=== PATIENT | female | born 1995 | race Caucasian/White ===

== ENCOUNTER 2018-01-15 15:34 | Inpatient (IN) | payer OTHER ==
[~2018-01-15] VITALS: Ht 165.1 cm; Wt 54.0 kg
--- NOTE | 2018-01-15 16:20 | NUR ---
recieved pt to ed bed 17, pt was bb sister for lower abdominal pain for nausea, vomiting. Pt is currently taking flagyl and acyclovir and he thinks these medications are causing the pain. NAD. vss rr even and unlabored. Will continue to monitor
[2018-01-15 16:30] LABS: HEMATOCRIT 46 % (39-51); HEMOGLOBIN 15.4 g/dL (13.5-17.5); LYMPHOCYTES # (AUTO) 0.4 /CMM (0.8-4.8); LYMPHOCYTES % (AUTO) 1.8 % (20.0-44.0); MEAN CORPUSCULAR HGB CONC 33 g/dl (31.0-36.0); MEAN CORPUSCULAR VOLUME 86 fL (80-96); MONOCYTES # (AUTO) 0.3 /CMM (0.1-1.30); MONOCYTES % (AUTO) 1.4 % (2.0-12.0); NEUTROPHILS # (AUTO) 21.1 /CMM (1.8-8.9); NEUTROPHILS % (AUTO) 96.8 % (43.0-81.0); PLATELET COUNT (AUTO) 230 /CMM (150-450); RED BLOOD CELL COUNT(AUTO) 5.34 MIL/uL (4.5-6.0); WHITE BLOOD COUNT (AUTO) 21.8 K/uL (4.3-11.0)
[2018-01-15] MEDS ORDERED: ONDANSETRON HCL/PF 4 MG/2 ML VIAL ONE ×2 (16:30→17:00)
[2018-01-15] MEDS ORDERED: ONDANSETRON HCL/PF 4 MG/2 ML VIAL IVP ONE (16:30)
[2018-01-15] MEDS ORDERED: IV NS 0.9% 1,000 ML BAG IV ONE (16:30)
[2018-01-15 16:34] LABS: CALCIUM, SERUM 9.1 mg/dL (8.5-10.1); CREATININE 1.1 mg/dL (0.6-1.3); POTASSIUM 3.6 mmol/L (3.5-5.1)
[2018-01-15 16:39] LABS: BILIRUBIN,DIRECT 0.1 mg/dL (0.0-0.2); BILIRUBIN,TOTAL 0.8 mg/dL (0.2-1.0); TOTAL PROTEIN, SERUM 7.6 g/dL (6.4-8.2)
--- NOTE | 2018-01-15 16:42 | NUR ---
Medicated as ordered.
[2018-01-15] MEDS ORDERED: ONDANSETRON HCL/PF - ER 4 MG/2 ML VIAL IV ONE (17:00)
[2018-01-15] MEDS ORDERED: HYDROMORPHONE INJ 2 MG/ML DISP.SYRIN ONE (17:00)
[2018-01-15] MEDS ORDERED: HYDROMORPHONE 1 MG/1 ML DISP.SYRIN IV ONE (17:00)
[2018-01-15 17:35] LABS: BAND % (MANUAL) 6 % (0.0-5.0); LYMPHOCYTES % (MANUAL) 2 % (16-48); MONOCYTES % (MANUAL) 4 % (0-11.0); NEUTROPHILS % (MANUAL) 88 (42-76)
[2018-01-15 18:17] LABS: APPEARANCE,URINE CLOUDY (CLEAR); BILIRUBIN,URINE 1+ (NEGATIVE); BLOOD, URINE TRACE-INTA Ery/uL (NEGATIVE); COLOR,URINE DARK YELLO (YELLOW); KETONES,URINE TRACE (NEGATIVE); LEUKOCYTE ESTERASE ,URINE 2+ (NEGATIVE); NITRITE, URINE NEGATIVE (NEGATIVE); PH,URINE 6.5 (5.0-8.0); PROTEIN,URINE 2+ mg/dl (NEGATIVE); UGLUCOSE NEGATIVE (NEGATIVE); UROBILINOGEN,URINE 0.2 EU/dL (0.2)
[2018-01-15] MEDS ORDERED: CEFTRIAXONE 1GM BAG (ER ONLY) 1 GM/50 ML PIGGYBACK IV ONE (18:30)
[2018-01-15] MEDS ORDERED: CEFTRIAXONE 1GM BAG (ER ONLY) 50 ML IV ONE (18:37)
[2018-01-15 18:46] LABS: BACTERIA,URINE 2+ /HPF (None Seen); MUCUS,URINE Few /LPF (None Seen); SQUAMOUS EPITHELIAL CELL,UR 0-2 /HPF (None Seen); WBC,URINE 51-80 /HPF (0-3)
[2018-01-15] MEDS ORDERED: ACYC400T PO (18:49)
[2018-01-15] MEDS ORDERED: METR500T4 PO (18:49)
--- NOTE | 2018-01-15 19:20 | NUR ---
REPORT RECEIVED FROM MAXX MARTÍNEZ FOR DAJA.
[2018-01-15] MEDS ORDERED: ACETAMINOPHEN 325 MG TABLET PO PRN (19:30)
[2018-01-15] MEDS ORDERED: ZOLPIDEM TARTRATE 5 MG TABLET PO PRN (19:30)
[2018-01-15] MEDS ORDERED: MORPHINE SULFATE INJ 4 MG/ML DISP.SYRIN IV PRN (19:30)
[2018-01-15] MEDS ORDERED: MAGNESIUM HYDROXIDE 30 ML UDC PO PRN (19:30)
[2018-01-15] MEDS ORDERED: MAG HYDROX/AL HYDROX/SIMETH 30 ML UDC PO PRN (19:30)
[2018-01-15] MEDS ORDERED: HYDROCODONE/APAP 10/325MG 1 EA TABLET PO PRN (19:30)
[2018-01-15] MEDS ORDERED: HYDROCODONE/APAP 5/325MG 1 EACH TABLET PO PRN (19:30)
[2018-01-15] MEDS ORDERED: ONDANSETRON HCL/PF 4 MG/2 ML VIAL IVP PRN (19:30)
[2018-01-15] MEDS ORDERED: Z GUARD REMEDY 2 OZ OINT TP PRN (19:30)
--- NOTE | 2018-01-15 20:03 | NUR ---
PT ASSIGNED TO [place] BED 206-2
--- NOTE | 2018-01-15 20:12 | NUR ---
ENDORSED TO MAXX BARAHONA FOR DAJA.
--- NOTE | 2018-01-15 20:28 | NUR ---
PT TRANSPORTED VIA TO MS 206.2 WITH EMT. VSS.
[2018-01-15 20:30] VITALS: BP 110/52
--- NOTE | 2018-01-15 20:30 | NUR ---
RECEIVED PATIENT FROM ER FOR DX PELVIC INFLAMMATORY DISEASE. AO X 3, ABLE TO MAKE NEEDS KNOWN. NO ACUTE DISTRESS NOTED. PAIN AT 2/10 ON LOWER ABDOMINAL AT THIS TIME; TOLERABLE PER PATIENT. IV SITE PATENT, INTACT; FLUSHED. SKIN INTACT. ORIENTATION TO ROOM AND UNIT GIVEN TO PATIENT; VERBALIZED UNDERSTANDING. SAFETY REMINDERS GIVEN. ON LOW BED WITH BILATERAL UPPER SIDE RAILS UP. CALL SUGGS WITHIN EASY REACH. WILL CONTINUE TO MONITOR.
[2018-01-15 20:35] VITALS: BP 110/52
[2018-01-15] MEDS ORDERED: DOXYCYCLINE HYCLATE (100 MG) 100 MG TABLET ONE (23:26)
[2018-01-15] MEDS: IV NS 0.9% 1,000 ML IV PRN (23:32)
[2018-01-15] MEDS: DOXYCYCLINE HYCLATE (100 MG) 100 MG TABLET PO SCH (23:35)
[2018-01-15] MEDS: CEFOTETAN DISODIUM IV SCH (23:39)
[2018-01-15] MEDS: D5W IV SCH (23:39)
--- NOTE | 2018-01-15 23:40 | NUR ---
NO CEFOTETAN IV PER HOSIERY REPAIRER. WILL FOLLOW UP WITH INVASIVE PHYSICIAN MD.
--- NOTE | 2018-01-16 01:40 | NUR ---
PAGED DR. RENÉ Castaneda TWICE; NO CALL BACK YET AT THIS TIME. PATIENT STABLE.
--- NOTE | 2018-01-16 07:00 | NUR ---
PATIENT ASLEEP, EASILY AROUSABLE. RESPIRATIONS EVEN. NO SIGNS OF PAIN NOTED. DUE MEDS GIVEN WITH NO ASE NOTED. NEEDS ATTENDED. SAFETY PRECAUTIONS AND COMFORT MEASURES IN PLACE. WILL GIVE REPORT TO DAY SHIFT FOR CONTINUITY OF CARE. PER DR. MERRITT, NOTIFY AM MD REGARDING AVAILABILITY OF CEFOTETAN IV.
[2018-01-16 07:08] LABS: HEMATOCRIT 40 % (39-51); HEMOGLOBIN 13.9 g/dL (13.5-17.5); LYMPHOCYTES # (AUTO) 1.6 /CMM (0.8-4.8); LYMPHOCYTES % (AUTO) 7.4 % (20.0-44.0); MEAN CORPUSCULAR HGB CONC 34 g/dl (31.0-36.0); MEAN CORPUSCULAR VOLUME 87 fL (80-96); MONOCYTES # (AUTO) 0.5 /CMM (0.1-1.30); MONOCYTES % (AUTO) 2.3 % (2.0-12.0); NEUTROPHILS % (AUTO) 90.3 % (43.0-81.0); PLATELET COUNT (AUTO) 217 /CMM (150-450); RDW COEFFICIENT OF VARIATION 13.1 (11.5-15.0); RED BLOOD CELL COUNT(AUTO) 4.66 MIL/uL (4.5-6.0); WHITE BLOOD COUNT (AUTO) 22.2 K/uL (4.3-11.0)
[2018-01-16 07:27] LABS: CALCIUM, SERUM 8.5 mg/dL (8.5-10.1); CREATININE 0.8 mg/dL (0.6-1.3); MAGNESIUM 1.8 mg/dL (1.8-2.4); PHOSPHORUS 2.8 mg/dL (2.5-4.9); POTASSIUM 4.3 mmol/L (3.5-5.1)
[2018-01-16 08:00] VITALS: BP 100/71
--- NOTE | 2018-01-16 08:00 | NUR ---
RN NOTES RECEIVED PATIENT IN THE ROOM MALE A/O X4. PATIENT HAS NO RESPIRATORY DISTRESS, EATING BREAKFAST. INFUSING IV ON LEFT AC INTACT NS AT 75 ML/HR. PATIENT HAS NO C/O PAIN AT THIS TIME. PATIENT AMBULATORY SELF CARE. NEEDS ATTENDED AND ANTICIPATED. CALL LIGHT WITHIN TO REACH. SAFETY PRECAUTION MAINTAINED ALL THE TIME.
[2018-01-16] MEDS: D5W IV SCH (08:26)
[2018-01-16] MEDS: CEFOTETAN DISODIUM IV SCH (08:26)
[2018-01-16] MEDS: DOXYCYCLINE HYCLATE (100 MG) 100 MG TABLET PO SCH ×2 (09:09→21:54)
--- NOTE | 2018-01-16 09:10 | NUR ---
RN NOTES ADMINISTERED NARCO 10/325 MG PO PRN FOR ABDOMINAL PAIN 02/12, PER PATIENT REQUEST, V/S TAKEN BP -100/71, P-77. ENCOURAGED TO INCREASE FLUID INTAKE. CONTINUED MONITORING.
--- NOTE | 2018-01-16 12:00 | NUR ---
RN NOTES MEDICATION WERE ADMINISTERED FOR PAIN EFFECTIVE, NO ACUTE DISTRESS, CONTINUED MONITORING.
[2018-01-16] MEDS: CEFOXITIN 2 G in IV NS 0.9% 100 ML IV SCH ×2 (12:39→19:41)
[2018-01-16] MEDS: IV NS 0.9% 1,000 ML IV PRN (12:43)
--- NOTE | 2018-01-16 18:30 | NUR ---
RN NOTES PATIENT STABLE , NO C/O PAIN, MED COMPLIANT, V/S STABLE. MOTHER NEXT TO THE BED. CALL LIGHT WITHIN TO REACH. ENDORSED ONCOMING NURSE FOR DAJA.
--- NOTE | 2018-01-16 19:40 | NUR ---
MS RN NOTE: PATIENT RESTING IN BED, NO ACUTE DISTRESS NOTED. BREATHING EVEN AND UNLABORED, NO SOB NOTED. IV TO LAC IN PLACE, INFUSING NS AT 75 ML/HR. BED LOCKED AND IN LOWEST POSITION, CALL LIGHT IN REACH. WILL CONTINUE TO MONITOR.
[2018-01-16 20:19] VITALS: BP 110/76
[2018-01-16] MEDS: METRONIDAZOLE 500 MG TABLET PO SCH (21:54)
[2018-01-17] MEDS: CEFOXITIN 2 G in IV NS 0.9% 100 ML IV SCH ×3 (00:18→12:22)
[2018-01-17] MEDS: METRONIDAZOLE 500 MG TABLET PO SCH ×2 (05:08→12:22)
--- NOTE | 2018-01-17 06:29 | NUR ---
MS RN CLOSING NOTES ALL DUE MEDS GIVEN, NEEDS MET AND ANTICIPATED. AWAKE AND RESPONSIVE. AFEBRILE, RESPIRATIONS ARE EVEN AND UNLABORED, NOT IN ANY ACUTE DISTRESS NOTED. NO C/O CHEST PAIN, SOB, N/V. IV SITE INTACT, NO INFILTRATION NOTED. DRESSING KEPT CLEAN AND DRY. SAFETY MEASURES ARE IN PLACE. CALL LIGHT IS LEFT WITHIN REACH. WILL ENDORSE TO NEXT SHIFT FOR CONTINUITY OF CARE.
[2018-01-17 08:00] VITALS: BP 99/49
[2018-01-17] MEDS: IV NS 0.9% 1,000 ML IV PRN (08:08)
[2018-01-17] MEDS: DOXYCYCLINE HYCLATE (100 MG) 100 MG TABLET PO SCH (08:09)
[2018-01-17 10:36] VITALS: BP 108/59
[2018-01-17 11:04] LABS: BASOPHILS % (AUTO) 0.3 % (0.0-2.0); EOSINOPHILS % (AUTO) 0.5 % (0.0-6.0); HEMATOCRIT 42 % (39-51); HEMOGLOBIN 14.3 g/dL (13.5-17.5); LYMPHOCYTES # (AUTO) 1.1 /CMM (0.8-4.8); LYMPHOCYTES % (AUTO) 14.1 % (20.0-44.0); MEAN CORPUSCULAR HGB CONC 34 g/dl (31.0-36.0); MEAN CORPUSCULAR VOLUME 87 fL (80-96); MONOCYTES # (AUTO) 0.5 /CMM (0.1-1.30); MONOCYTES % (AUTO) 6.1 % (2.0-12.0); NEUTROPHILS # (AUTO) 6.3 /CMM (1.8-8.9); PLATELET COUNT (AUTO) 225 /CMM (150-450); RDW COEFFICIENT OF VARIATION 13.1 (11.5-15.0); RED BLOOD CELL COUNT(AUTO) 4.83 MIL/uL (4.5-6.0)
[2018-01-17 12:00] VITALS: BP 103/55
[2018-01-17] MEDS ORDERED: DOXY100C41 PO (12:27)
--- NOTE | 2018-01-17 14:16 | NUR ---
RN NOTES: PATIENT DISCHARGED HOME PER DR HERNANDEZ ORDERS. NONLABORED BREATHING NOTED THROUGHOUT SHIFT. PATIENT AFEBRILE THROUGHOUT SHIFT. PATIENT STATED THAT NAUSEA IMPROVED AFTER ZOFRAN ADMINISTRATION IN AM. NO VOMITING NOTED THROUGHOUT SHIFT. IV LINE REMOVED. PATIENT EDUCATED ON DISCHARGE INSTRUCTIONS, PRESCRIPTION MEDICATION, AND APPOINTMENT WITH [facility] CL[facility]IC. ALL BELONGINGS GIVEN TO PATIENT. PATIENT LEFT WITH FAMILY MEMBER VIA PRIVATE CAR. ACCOMPANIED TO CAR BY STAFF MEMBER
== END 2018-01-17 14:15 | disposition home or self-care (01) | DRG 872 ==
LOC: EDSEX → ER 15:35 → EDSEX 20:15 → MEDSG2 20:15
PROVIDERS: ADMIT Internal Medicine; ATTEND Internal Medicine
DX: A41.9 Sepsis, unspecified organism (principal); A59.9 Trichomoniasis, unspecified; N39.0 Urinary tract infection, site not specified; F64.9 Gender identity disorder, unspecified; Z90.13 Acquired absence of bilateral breasts and nipples; F32.9 Major depressive disorder, single episode, unspecified; F12.929 Cannabis use, unspecified with intoxication, unspecified; N73.9 Female pelvic inflammatory disease, unspecified
CPT/HCPCS: 36415; 76856-TC; 80048-TC; 80076-TC; 81000-TC; 83690-TC; 83735-TC; 84100-TC; 84703-TC; 85025-TC; 87081-TC; 87086-TC; 87110-TC; A4606; J0694; J0696; J1170; J2405; J7030; J7060; Z7610

== ENCOUNTER 2018-01-23 13:07 | Outpatient (CLI) | payer OTHER ==
[~2018-01-23 13:07] MED LIST: ACYC400T PO; DOXY100C41 PO; METR500T4 PO
[2018-01-23 13:15] VITALS: BP 119/70
== END 2018-01-23 23:59 | disposition home or self-care (01) ==
LOC: EDSEX 13:07 → MSC 13:07
PROVIDERS: ATTEND Internal Medicine
DX: Z09 Encounter for follow-up examination after completed treatment for conditions other than malignant neoplasm (principal); F64.9 Gender identity disorder, unspecified